=== PATIENT | male | born 1970 | race Two or more races ===

== ENCOUNTER 2022-04-15 23:45 | Inpatient (IN) | payer OTHER ==
[~2022-04-15] VITALS: Ht 170.2 cm; Wt 82.1 kg
== END 2022-04-20 13:17 | disposition home or self-care (01) | DRG 419 ==
LOC: ER 23:45 → SURG 04-16 13:28 → MEDI 04-17 20:46 → SURG 04-17 22:09
PROVIDERS: Surgery; ADMIT Internal Medicine; ATTEND Internal Medicine
PROC: BW21ZZZ Computerized Tomography (CT Scan) of Abdomen and Pelvis (ICD-10-PCS; 2022-04-16)
PROC: 0DQ94ZZ Repair Duodenum, Percutaneous Endoscopic Approach (ICD-10-PCS; 2022-04-17)
PROC: 0FT44ZZ Resection of Gallbladder, Percutaneous Endoscopic Approach (ICD-10-PCS; principal; 2022-04-17 17:15)
DX: K80.00 Calculus of gallbladder with acute cholecystitis without obstruction (principal); E86.0 Dehydration; R10.11 Right upper quadrant pain; Z20.822 Contact with and (suspected) exposure to COVID-19